=== PATIENT | female | born 1935 | race Caucasian/White ===

== ENCOUNTER → 2017-01-28 | Outpatient (CLI) | payer MEDICARE | END | disposition home or self-care (01) | LOC: CFH 15:04 | PROVIDERS: ATTEND Nurse Practitioner Family | DX: S22.41XA Multiple fractures of ribs, right side, initial encounter for closed fracture (principal); R91.1 Solitary pulmonary nodule; M25.551 Pain in right hip; R09.02 Hypoxemia; R26.89 Other abnormalities of gait and mobility; X58.XXXA Exposure to other specified factors, initial encounter; Y93.89 Activity, other specified; Y92.89 Other specified places as the place of occurrence of the external cause; Y99.8 Other external cause status | CPT/HCPCS: 73523 ==

== ENCOUNTER 2017-07-03 14:18 | Inpatient (IN) | payer MEDICARE ==
[~2017-07-03] VITALS: Ht 157.5 cm; Wt 58.2 kg
[2017-07-03] MEDS ORDERED: SODIUM CHLORIDE 0.9% 1,000 ML IV ONE (14:55)
[2017-07-03] MEDS ORDERED: methylPREDNISolone SOD SUCC 125 MG/2 ML IVP ONE (15:00)
[2017-07-03] MEDS ORDERED: SODIUM CHLORIDE FLUSH 10ML SYR IVF ONE (15:00)
[2017-07-03] MEDS ORDERED: SODIUM CHLORIDE 0.9% 1,000 ML IV SCH (15:27)
[2017-07-03] MEDS ORDERED: methylPREDNISolone SOD SUCC 125 MG/2 ML ONE (15:28)
[2017-07-03] MEDS ORDERED: ALBUTEROL SULFATE 2.5 MG/3 ML ONE ×3 (15:29→21:13)
[2017-07-03] MEDS ORDERED: HYDROcodone/APAP 5/325 TABLET PO PRN (15:30)
[2017-07-03] MEDS ORDERED: ONDANSETRON 2MG/ML, 2ML IVPush PRN (15:30)
[2017-07-03] MEDS ORDERED: DOCUSATE 100 MG CAPSULE PO PRN (15:30)
[2017-07-03] MEDS ORDERED: ACETAMINOPHEN 325 MG TABLET PO PRN (15:30)
[2017-07-03] MEDS ORDERED: GUAIFENESIN/DM 200-20MG, 10ML UDC PO PRN (15:30)
[2017-07-03] MEDS ORDERED: POLYETHYLENE GLYCOL 17 GM PACKET PO PRN (15:30)
[2017-07-03] MEDS: methylPREDNISolone SOD SUCC 125 MG/2 ML IVPush SCH ×2 (15:30→23:21)
[2017-07-03 15:35] LABS: HEMOGLOBIN 13.9 g/dL (11.7-16.4); WHITE BLOOD COUNT 15.6 x10^3/uL (3.4-10)
[2017-07-03 15:42] LABS: ASPARTATE AMINO TRANSFERASE 13 U/L (15-37); BLOOD UREA NITROGEN 34 mg/dL (7-18)
[2017-07-03 15:49] LABS: IS PT STATUS REG ER OR PRE ER? YES
[2017-07-03] MEDS ORDERED: ATOR10TA9 PO (15:56)
[2017-07-03] MEDS ORDERED: LORA0.5T PO (15:56)
[2017-07-03] MEDS ORDERED: CALC1CAP8 PO (15:56)
[2017-07-03] MEDS ORDERED: NITR50CA11 PO (15:56)
[2017-07-03] MEDS ORDERED: LOPE2CAP PO (15:56)
[2017-07-03] MEDS ORDERED: GUAI-103 PO (15:56)
[2017-07-03] MEDS ORDERED: BUDE10.2 INH (15:56)
[2017-07-03] MEDS ORDERED: CYAN1TAB29 PO (15:56)
[2017-07-03] MEDS ORDERED: SITA100T PO (15:56)
[2017-07-03] MEDS ORDERED: IRBE150T49 PO (15:56)
[2017-07-03] MEDS ORDERED: DILT240C77 PO (15:56)
[2017-07-03] MEDS ORDERED: ASPI-515 PO (15:56)
[2017-07-03] MEDS ORDERED: PRED10TA PO (15:56)
[2017-07-03] MEDS ORDERED: POTA20TA89 PO (15:56)
[2017-07-03] MEDS ORDERED: LEVO50TA PO (15:56)
[2017-07-03] MEDS ORDERED: MAGN500T PO (15:56)
[2017-07-03] MEDS ORDERED: INSU100V13 SQ (15:56)
[2017-07-03] MEDS ORDERED: FURO-92 PO (15:56)
[2017-07-03] MEDS ORDERED: IPRA4AER INH (15:56)
[2017-07-03] MEDS ORDERED: AZIT500T PO (15:56)
[2017-07-03] MEDS ORDERED: SERT100T5 PO (15:56)
[2017-07-03] MEDS ORDERED: TIOT18CA INH (15:56)
[2017-07-03] MEDS ORDERED: GLIM2TAB2 PO (15:56)
[2017-07-03] MEDS ORDERED: MONT10TA9 PO (15:56)
[2017-07-03] MEDS ORDERED: TRAV5DRO EACHEYE (15:56)
[2017-07-03] MEDS ORDERED: BRIM5DRO3 EACHEYE (15:56)
[2017-07-03] MEDS ORDERED: FUROSEMIDE 20 MG/2 ML IV ONE (16:00)
[2017-07-03] MEDS: INSULIN ASPART 100 UNITS/ML, PEN SQ-INSULIN SCH ×2 (16:00→20:16)
[2017-07-03] MEDS ORDERED: CEFTRIAXONE PMX 1GM/50ML 50 ML ONE (16:11)
[2017-07-03] MEDS: CEFTRIAXONE PMX 1GM/50ML 50 ML IV SCH ×2 (16:15→17:48)
[2017-07-03 17:38] VITALS: BP 131/58
[2017-07-03] MEDS: ENOXAPARIN 30 MG/0.3 ML SQ SCH (18:10)
[2017-07-03 19:13] VITALS: BP 158/71
[2017-07-03] MEDS: DOXYCYCLINE 100 MG in DEXTROSE 5% 250 ML IV SCH (20:17)
[2017-07-04 02:17] VITALS: BP 138/58
[2017-07-04] MEDS: INSULIN ASPART 100 UNITS/ML, PEN SQ-INSULIN SCH ×4 (07:31→21:03)
[2017-07-04] MEDS: methylPREDNISolone SOD SUCC 125 MG/2 ML IVPush SCH (07:32)
[2017-07-04] MEDS: SENNA/DOCUSATE TABLET PO SCH (07:32)
[2017-07-04] MEDS: DOXYCYCLINE 100 MG in DEXTROSE 5% 250 ML IV SCH (07:32)
[2017-07-04 07:41] VITALS: BP 169/86
[2017-07-04] MEDS ORDERED: ALBUTEROL/IPRATROPIUM 2.5MG/0.5MG, 3 ML NPPB SCH ×2 (09:00→10:00)
[2017-07-04] MEDS: ALBUTEROL/IPRATROPIUM 2.5MG/0.5MG, 3 ML NPPB SCH ×3 (09:00→18:45)
[2017-07-04 10:38] VITALS: BP 213/93
[2017-07-04 10:39] VITALS: BP 194/80
[2017-07-04] MEDS: LORazepam 1MG TABLET PO PRN (10:51)
[2017-07-04] MEDS ORDERED: FUROSEMIDE 40 MG/4 ML IV ONE (11:00)
[2017-07-04] MEDS ORDERED: OMNIPAQUE 350 MG/ML, 75ML BOTTLE ONE (12:19)
[2017-07-04 13:23] VITALS: BP 170/85
[2017-07-04] MEDS: INSULIN DETEMIR 100 UNITS/ML, PEN SQ-INSULIN SCH (16:24)
[2017-07-04] MEDS: ENOXAPARIN 30 MG/0.3 ML SQ SCH (16:25)
[2017-07-04] MEDS: IRBESARTAN 150 MG TABLET PO SCH (16:26)
[2017-07-04 20:16] VITALS: BP 148/67
[2017-07-05 01:59] VITALS: BP 152/88
[2017-07-05 04:45] LABS: BLOOD UREA NITROGEN 38 mg/dL (7-18)
[2017-07-05] MEDS: INSULIN DETEMIR 100 UNITS/ML, PEN SQ-INSULIN SCH ×2 (05:16→16:10)
[2017-07-05 06:38] VITALS: BP 157/74
[2017-07-05] MEDS: INSULIN ASPART 100 UNITS/ML, PEN SQ-INSULIN SCH ×4 (08:07→20:53)
[2017-07-05] MEDS: LORazepam 1MG TABLET PO PRN ×2 (08:14→15:55)
[2017-07-05] MEDS: IRBESARTAN 150 MG TABLET PO SCH (08:14)
[2017-07-05] MEDS: SENNA/DOCUSATE TABLET PO SCH (08:14)
[2017-07-05] MEDS: ALBUTEROL/IPRATROPIUM 2.5MG/0.5MG, 3 ML NPPB SCH ×2 (09:00→20:10)
[2017-07-05 13:22] VITALS: BP 158/66
[2017-07-05] MEDS: ENOXAPARIN 30 MG/0.3 ML SQ SCH (16:00)
[2017-07-05] MEDS ORDERED: ALBUTEROL SULFATE 2.5 MG/3 ML NPPB PRN (16:30)
[2017-07-05 20:34] VITALS: BP 155/69
[2017-07-06 02:10] VITALS: BP 154/77
[2017-07-06] MEDS: INSULIN DETEMIR 100 UNITS/ML, PEN SQ-INSULIN SCH ×2 (05:11→16:39)
[2017-07-06 07:41] VITALS: BP 169/80
[2017-07-06] MEDS: IRBESARTAN 150 MG TABLET PO SCH (08:11)
[2017-07-06] MEDS: LORazepam 1MG TABLET PO PRN (08:12)
[2017-07-06] MEDS: SENNA/DOCUSATE TABLET PO SCH (08:12)
[2017-07-06] MEDS: INSULIN ASPART 100 UNITS/ML, PEN SQ-INSULIN SCH ×4 (08:14→20:14)
[2017-07-06] MEDS: ALBUTEROL/IPRATROPIUM 2.5MG/0.5MG, 3 ML NPPB SCH ×2 (09:00→19:30)
[2017-07-06 14:58] VITALS: BP 186/85
[2017-07-06 15:39] VITALS: BP 152/70
[2017-07-06] MEDS: ENOXAPARIN 30 MG/0.3 ML SQ SCH (16:40)
[2017-07-06 20:06] VITALS: BP 150/69
[2017-07-07 01:46] VITALS: BP 143/77
[2017-07-07 05:33] LABS: ASPARTATE AMINO TRANSFERASE 13 U/L (15-37); BLOOD UREA NITROGEN 27 mg/dL (7-18)
[2017-07-07] MEDS: INSULIN ASPART 100 UNITS/ML, PEN SQ-INSULIN SCH ×4 (07:00→22:02)
[2017-07-07 08:07] VITALS: BP 233/97
[2017-07-07 08:09] VITALS: BP 220/90
[2017-07-07] MEDS: INSULIN DETEMIR 100 UNITS/ML, PEN SQ-INSULIN SCH ×2 (08:25→22:53)
[2017-07-07] MEDS: SENNA/DOCUSATE TABLET PO SCH (08:25)
[2017-07-07] MEDS: LORazepam 1MG TABLET PO PRN (08:27)
[2017-07-07] MEDS: ALBUTEROL/IPRATROPIUM 2.5MG/0.5MG, 3 ML NPPB SCH ×2 (08:30→21:00)
[2017-07-07] MEDS ORDERED: LABETALOL 5MG/ML, 20ML IVPush PRN (08:30)
[2017-07-07] MEDS: IRBESARTAN 300 MG TABLET PO SCH (09:33)
[2017-07-07] MEDS: POTASSIUM CHLORIDE 20 MEQ TAB.ER.PRT PO SCH (09:33)
[2017-07-07] MEDS ORDERED: INSULIN DETEMIR 100 UNITS/ML, PEN SQ-INSULIN SCH (11:30)
[2017-07-07 14:36] VITALS: BP 155/72
[2017-07-07] MEDS: ENOXAPARIN 40 MG/0.4 ML SQ SCH (16:48)
[2017-07-07 19:12] VITALS: BP 159/76
[2017-07-07] MEDS ORDERED: INSULIN ASPART 100 UNITS/ML, PEN SQ-INSULIN ONE (23:00)
[2017-07-08 01:33] VITALS: BP 143/69
[2017-07-08 04:28] LABS: BLOOD UREA NITROGEN 24 mg/dL (7-18)
[2017-07-08 04:31] LABS: ASPARTATE AMINO TRANSFERASE 12 U/L (15-37)
[2017-07-08 06:50] VITALS: BP 167/66
[2017-07-08] MEDS: ALBUTEROL/IPRATROPIUM 2.5MG/0.5MG, 3 ML NPPB SCH ×2 (07:03→10:28)
[2017-07-08 07:05] VITALS: BP 167/66
[2017-07-08] MEDS: SENNA/DOCUSATE TABLET PO SCH (09:00)
[2017-07-08] MEDS: INSULIN ASPART 100 UNITS/ML, PEN SQ-INSULIN SCH ×3 (09:16→16:55)
[2017-07-08] MEDS: IRBESARTAN 300 MG TABLET PO SCH (09:18)
[2017-07-08] MEDS: POTASSIUM CHLORIDE 20 MEQ TAB.ER.PRT PO SCH (09:18)
[2017-07-08] MEDS: LORazepam 1MG TABLET PO PRN ×2 (09:23→16:54)
[2017-07-08] MEDS ORDERED: POLY17PO5 PO (11:06)
[2017-07-08] MEDS ORDERED: IRBE300T40 PO (11:06)
[2017-07-08] MEDS ORDERED: INSU100I28 SQ-INSULIN (11:06)
[2017-07-08] MEDS ORDERED: ALBU2.5V NPPB (11:06)
[2017-07-08] MEDS: INSULIN DETEMIR 100 UNITS/ML, PEN SQ-INSULIN SCH (11:59)
[2017-07-08 13:15] VITALS: BP 147/72
[2017-07-08] MEDS: ENOXAPARIN 40 MG/0.4 ML SQ SCH (16:00)
== END 2017-07-08 17:22 | DRG 291 ==
LOC: ED 15:14 → EDIP 15:15 → SUATTDRO 15:17 → ED 15:55 → 3NW 16:58
PROVIDERS: ADMIT Family Medicine; ATTEND Internal Medicine
DX: I11.0 Hypertensive heart disease with heart failure (principal); J96.21 Acute and chronic respiratory failure with hypoxia; E43 Unspecified severe protein-calorie malnutrition; J18.9 Pneumonia, unspecified organism; J44.0 Chronic obstructive pulmonary disease with (acute) lower respiratory infection; E11.9 Type 2 diabetes mellitus without complications; J44.1 Chronic obstructive pulmonary disease with (acute) exacerbation; I50.32 Chronic diastolic (congestive) heart failure; E87.6 Hypokalemia; F32.9 Major depressive disorder, single episode, unspecified; Z51.5 Encounter for palliative care; R91.1 Solitary pulmonary nodule; Z66 Do not resuscitate; Z79.4 Long term (current) use of insulin; Z88.0 Allergy status to penicillin; Z68.23 Body mass index [BMI] 23.0-23.9, adult; Z88.2 Allergy status to sulfonamides; Z87.891 Personal history of nicotine dependence; Z88.5 Allergy status to narcotic agent
CPT/HCPCS: 36415; 71010; 71260; 80048; 80053; 82947; 82962; 83036; 83605; 83880; 84484; 85025; 87040; 87070; 87077; 87186; 87205; 93005; 94640; 96374; J0696; J1650; J1815; J1940; J7060; J7620; Q9967; J2930; J7030; J7512

== ENCOUNTER 2019-09-28 15:58 | Inpatient (IN) | payer MEDICARE, OTHER ==
[~2019-09-28] VITALS: Ht 152.4 cm; Wt 55.1 kg
[~2019-09-28 15:58] MED LIST: ALBU2.5V NPPB; ASPI-515 PO; ATOR10TA9 PO; AZIT500T PO; BRIM5DRO3 EACHEYE; BUDE10.2 INH; CALC1CAP8 PO; CYAN1TAB29 PO; DILT240C55 PO; DILT240C77 PO; FURO-92 PO; GLIM2TAB7 PO; GUAI-103 PO; INSU100I28 SQ-INSULIN; INSU100V13 SQ; INSU3INS2 INJ; IPRA4AER INH; IRBE150T49 PO; IRBE300T40 PO; LEVO50TA PO; LOPE2CAP PO; LORA0.5T PO; MAGN500T PO; MONT10TA11 PO; NITR50CA11 PO; POLY17PO5 PO; POTA20TA89 PO; PRED10TA PO; SERT100T32 PO; SITA100T PO; TIOT18CA INH; TRAV5DRO EACHEYE
[2019-09-28 17:08] VITALS: BP 177/76
[2019-09-28] MEDS ORDERED: POLYETHYLENE GLYCOL 17 GM PACKET PO PRN (17:30)
[2019-09-28] MEDS: PLEASE ENTER HEIGHT AND WEIGHT MC SCH (17:30)
[2019-09-28] MEDS ORDERED: ACETAMINOPHEN 325 MG TABLET PO PRN (17:30)
[2019-09-28 19:41] VITALS: BP 124/70
[2019-09-28] MEDS: ALBUTEROL/IPRATROPIUM 2.5MG/0.5MG, 3 ML NPPB SCH (20:44)
[2019-09-28] MEDS: BUDESONIDE 0.5 MG/2 ML INHA INH SCH (20:44)
[2019-09-29] MEDS: PLEASE ENTER HEIGHT AND WEIGHT MC SCH (01:30)
[2019-09-29] MEDS: ALBUTEROL/IPRATROPIUM 2.5MG/0.5MG, 3 ML NPPB SCH (07:18)
[2019-09-29] MEDS: BUDESONIDE 0.5 MG/2 ML INHA INH SCH (07:18)
[2019-09-29 07:47] VITALS: BP 155/65
[2019-09-29] MEDS: DILTIAZEM 240 MG CAP.ER.24H PO SCH (09:57)
[2019-09-29] MEDS: ASPIRIN 81 MG TABLET EC PO SCH (09:57)
[2019-09-29] MEDS: FUROSEMIDE 40 MG TABLET PO SCH (09:57)
[2019-09-29] MEDS: IRBESARTAN 150 MG TABLET PO SCH (09:57)
[2019-09-29 10:20] LABS: CHOL/HDL RATIO 2.6; FREE T4 (FREE THYROXINE) 1.16 ng/dL (0.76-1.46); LDL/HDL RATIO 1.1 (0.5-3.0)
[2019-09-29] MEDS: ALBUTEROL SULFATE 2.5 MG/3 ML NPPB PRN (13:56)
[2019-09-29] MEDS: ESCITALOPRAM 10MG TABLET PO SCH (18:08)
[2019-09-29 19:33] VITALS: BP 125/71
[2019-09-29] MEDS: ATORVASTATIN 10 MG TABLET PO SCH (20:52)
[2019-09-30] MEDS: LEVOTHYROXINE 50 MCG TABLET PO SCH (06:12)
[2019-09-30 07:00] VITALS: BP 133/61
[2019-09-30] MEDS: BUDESONIDE 0.5 MG/2 ML INHA INH SCH ×2 (07:00→19:48)
[2019-09-30] MEDS: ALBUTEROL/IPRATROPIUM 2.5MG/0.5MG, 3 ML NPPB SCH ×2 (07:00→19:48)
[2019-09-30] MEDS: FUROSEMIDE 40 MG TABLET PO SCH (08:44)
[2019-09-30] MEDS: ASPIRIN 81 MG TABLET EC PO SCH (08:44)
[2019-09-30] MEDS: IRBESARTAN 150 MG TABLET PO SCH (08:44)
[2019-09-30] MEDS: ESCITALOPRAM 10MG TABLET PO SCH (08:45)
[2019-09-30] MEDS: DILTIAZEM 240 MG CAP.ER.24H PO SCH (08:45)
[2019-09-30 19:38] VITALS: BP 148/70
[2019-09-30] MEDS: ATORVASTATIN 10 MG TABLET PO SCH (20:35)
[2019-10-01] MEDS: LEVOTHYROXINE 50 MCG TABLET PO SCH (05:53)
[2019-10-01] MEDS: ALBUTEROL/IPRATROPIUM 2.5MG/0.5MG, 3 ML NPPB SCH ×2 (05:59→18:20)
[2019-10-01] MEDS: BUDESONIDE 0.5 MG/2 ML INHA INH SCH ×2 (05:59→18:20)
[2019-10-01 07:59] VITALS: BP 147/65
[2019-10-01] MEDS: ASPIRIN 81 MG TABLET EC PO SCH (08:43)
[2019-10-01] MEDS: FUROSEMIDE 40 MG TABLET PO SCH (08:44)
[2019-10-01] MEDS: IRBESARTAN 150 MG TABLET PO SCH (08:44)
[2019-10-01] MEDS: DILTIAZEM 240 MG CAP.ER.24H PO SCH (08:44)
[2019-10-01] MEDS: ESCITALOPRAM 10MG TABLET PO SCH (08:44)
[2019-10-01 19:15] VITALS: BP 133/70
[2019-10-01] MEDS: ATORVASTATIN 10 MG TABLET PO SCH (21:24)
[2019-10-02] MEDS: LEVOTHYROXINE 50 MCG TABLET PO SCH (05:27)
[2019-10-02 07:38] VITALS: BP 135/77
[2019-10-02] MEDS: BUDESONIDE 0.5 MG/2 ML INHA INH SCH ×2 (08:06→18:40)
[2019-10-02] MEDS: ALBUTEROL/IPRATROPIUM 2.5MG/0.5MG, 3 ML NPPB SCH ×2 (08:06→18:40)
[2019-10-02] MEDS: IRBESARTAN 150 MG TABLET PO SCH (08:26)
[2019-10-02] MEDS: ESCITALOPRAM 10MG TABLET PO SCH (08:26)
[2019-10-02] MEDS: DILTIAZEM 240 MG CAP.ER.24H PO SCH (08:26)
[2019-10-02] MEDS: ASPIRIN 81 MG TABLET EC PO SCH (08:27)
[2019-10-02] MEDS: FUROSEMIDE 40 MG TABLET PO SCH (08:27)
[2019-10-02] MEDS: FOLIC ACID 1 MG TABLET PO SCH (12:02)
[2019-10-02] MEDS: ALBUTEROL SULFATE 2.5 MG/3 ML NPPB PRN (14:46)
[2019-10-02] MEDS ORDERED: ALBUTEROL SULFATE 2.5 MG/3 ML NPPB PRN (15:00)
[2019-10-02 19:20] VITALS: BP 137/63
[2019-10-02] MEDS: ATORVASTATIN 10 MG TABLET PO SCH (20:28)
[2019-10-03] MEDS: LEVOTHYROXINE 50 MCG TABLET PO SCH (06:08)
[2019-10-03 07:23] VITALS: BP 164/52
[2019-10-03] MEDS: IRBESARTAN 150 MG TABLET PO SCH (08:41)
[2019-10-03] MEDS: FOLIC ACID 1 MG TABLET PO SCH (08:42)
[2019-10-03] MEDS: ASPIRIN 81 MG TABLET EC PO SCH (08:42)
[2019-10-03] MEDS: DILTIAZEM 240 MG CAP.ER.24H PO SCH (08:42)
[2019-10-03] MEDS: ESCITALOPRAM 10MG TABLET PO SCH (08:42)
[2019-10-03] MEDS: FUROSEMIDE 40 MG TABLET PO SCH (08:42)
[2019-10-03] MEDS: ALBUTEROL/IPRATROPIUM 2.5MG/0.5MG, 3 ML NPPB SCH ×2 (11:00→19:00)
[2019-10-03] MEDS: BUDESONIDE 0.5 MG/2 ML INHA INH SCH ×2 (11:00→19:00)
[2019-10-03 11:50] VITALS: BP 135/66
[2019-10-03] MEDS: ATORVASTATIN 10 MG TABLET PO SCH (20:01)
[2019-10-03] MEDS: GUAIFENESIN ER 600 MG TABLET PO SCH (20:07)
[2019-10-03 20:24] VITALS: BP 138/61
[2019-10-04] MEDS: LEVOTHYROXINE 50 MCG TABLET PO SCH (05:51)
[2019-10-04 07:00] VITALS: BP 151/54
[2019-10-04] MEDS: ASPIRIN 81 MG TABLET EC PO SCH (08:40)
[2019-10-04] MEDS: DILTIAZEM 240 MG CAP.ER.24H PO SCH (08:41)
[2019-10-04] MEDS: GUAIFENESIN ER 600 MG TABLET PO SCH ×2 (08:41→20:08)
[2019-10-04] MEDS: FUROSEMIDE 40 MG TABLET PO SCH (08:41)
[2019-10-04] MEDS: ESCITALOPRAM 10MG TABLET PO SCH (08:41)
[2019-10-04] MEDS: IRBESARTAN 150 MG TABLET PO SCH (08:42)
[2019-10-04] MEDS: FOLIC ACID 1 MG TABLET PO SCH (08:42)
[2019-10-04] MEDS: BUDESONIDE 0.5 MG/2 ML INHA INH SCH ×2 (09:10→18:50)
[2019-10-04] MEDS: ALBUTEROL/IPRATROPIUM 2.5MG/0.5MG, 3 ML NPPB SCH ×2 (09:10→18:50)
[2019-10-04 19:00] VITALS: BP 147/68
[2019-10-04] MEDS: ATORVASTATIN 10 MG TABLET PO SCH (20:08)
[2019-10-05] MEDS: LEVOTHYROXINE 50 MCG TABLET PO SCH (05:21)
[2019-10-05 07:00] VITALS: BP 106/65
[2019-10-05 07:36] VITALS: BP 186/77
[2019-10-05] MEDS: GUAIFENESIN ER 600 MG TABLET PO SCH ×2 (08:58→20:35)
[2019-10-05] MEDS: SERTRALINE 50MG TABLET PO SCH (08:58)
[2019-10-05] MEDS: ASPIRIN 81 MG TABLET EC PO SCH (08:58)
[2019-10-05] MEDS: FOLIC ACID 1 MG TABLET PO SCH (08:58)
[2019-10-05] MEDS: DILTIAZEM 240 MG CAP.ER.24H PO SCH (08:58)
[2019-10-05] MEDS: FUROSEMIDE 40 MG TABLET PO SCH (08:58)
[2019-10-05] MEDS: ALBUTEROL/IPRATROPIUM 2.5MG/0.5MG, 3 ML NPPB SCH ×2 (10:20→19:20)
[2019-10-05] MEDS: BUDESONIDE 0.5 MG/2 ML INHA INH SCH ×2 (10:20→19:20)
[2019-10-05] MEDS: IRBESARTAN 150 MG TABLET PO SCH (10:51)
[2019-10-05 11:55] VITALS: BP_SYST 138; BP_SYST 163; BP_DIAS 113; BP_DIAS 70
[2019-10-05] MEDS: ALBUTEROL SULFATE 2.5 MG/3 ML NPPB PRN (16:20)
[2019-10-05 19:43] VITALS: BP 159/72
[2019-10-05] MEDS: ATORVASTATIN 10 MG TABLET PO SCH (20:35)
[2019-10-06] MEDS: LEVOTHYROXINE 50 MCG TABLET PO SCH (06:11)
[2019-10-06] MEDS: ALBUTEROL/IPRATROPIUM 2.5MG/0.5MG, 3 ML NPPB SCH ×2 (06:30→20:50)
[2019-10-06] MEDS: BUDESONIDE 0.5 MG/2 ML INHA INH SCH ×2 (06:30→20:50)
[2019-10-06 07:00] VITALS: BP 152/70
[2019-10-06] MEDS: IRBESARTAN 150 MG TABLET PO SCH (08:59)
[2019-10-06] MEDS: GUAIFENESIN ER 600 MG TABLET PO SCH ×2 (08:59→20:05)
[2019-10-06] MEDS: ASPIRIN 81 MG TABLET EC PO SCH (08:59)
[2019-10-06] MEDS: FOLIC ACID 1 MG TABLET PO SCH (08:59)
[2019-10-06] MEDS: SERTRALINE 50MG TABLET PO SCH (08:59)
[2019-10-06] MEDS: DILTIAZEM 240 MG CAP.ER.24H PO SCH (08:59)
[2019-10-06] MEDS: FUROSEMIDE 40 MG TABLET PO SCH (08:59)
[2019-10-06] MEDS: ATORVASTATIN 10 MG TABLET PO SCH (20:02)
[2019-10-06 20:53] VITALS: BP 169/69
[2019-10-07] MEDS: LEVOTHYROXINE 50 MCG TABLET PO SCH (05:51)
[2019-10-07 05:59] VITALS: BP 145/72
[2019-10-07 08:21] VITALS: BP 135/75
[2019-10-07] MEDS: ASPIRIN 81 MG TABLET EC PO SCH (08:36)
[2019-10-07] MEDS: IRBESARTAN 150 MG TABLET PO SCH (08:36)
[2019-10-07] MEDS: FOLIC ACID 1 MG TABLET PO SCH (08:37)
[2019-10-07] MEDS: DILTIAZEM 240 MG CAP.ER.24H PO SCH (08:37)
[2019-10-07] MEDS: FUROSEMIDE 40 MG TABLET PO SCH (08:37)
[2019-10-07] MEDS: SERTRALINE 50MG TABLET PO SCH (08:37)
[2019-10-07] MEDS: GUAIFENESIN ER 600 MG TABLET PO SCH ×2 (08:37→20:46)
[2019-10-07] MEDS: BUDESONIDE 0.5 MG/2 ML INHA INH SCH ×2 (11:05→20:44)
[2019-10-07] MEDS: ALBUTEROL/IPRATROPIUM 2.5MG/0.5MG, 3 ML NPPB SCH ×2 (11:05→20:44)
[2019-10-07 14:41] LABS: ANION GAP 10 mmol/L (5-15); CALCIUM 9.2 mg/dL (8.5-10.1); CHLORIDE 95 mmol/L (98-107); CREATININE 1.37 mg/dL (0.55-1.02)
[2019-10-07] MEDS ORDERED: SODIUM CHLORIDE 0.9% 500 ML IV ONE (15:30)
[2019-10-07] MEDS: INSULIN LISPRO 100 UNITS/ML, PEN SQ-INSULIN SCH ×2 (16:51→20:34)
[2019-10-07 18:46] LABS: ALANINE AMINOTRANSFERASE 26 U/L (12-78); ALBUMIN 3.3 g/dL (3.4-5.0); ANION GAP 8 mmol/L (5-15); CALCIUM 9.5 mg/dL (8.5-10.1); CHLORIDE 100 mmol/L (98-107); CREATININE 1.37 mg/dL (0.55-1.02)
[2019-10-07 18:48] LABS: ALKALINE PHOSPHATASE 88 U/L (45-117); BILIRUBIN,TOTAL 0.2 mg/dL (0.2-1.0); TOTAL PROTEIN 7.2 g/dL (6.4-8.2)
[2019-10-07 19:35] VITALS: BP 130/55
[2019-10-07] MEDS: ATORVASTATIN 10 MG TABLET PO SCH (20:46)
[2019-10-08] MEDS: LEVOTHYROXINE 50 MCG TABLET PO SCH (05:55)
[2019-10-08 07:38] VITALS: BP 135/69
[2019-10-08] MEDS: INSULIN LISPRO 100 UNITS/ML, PEN SQ-INSULIN SCH ×4 (08:28→20:05)
[2019-10-08] MEDS: ASPIRIN 81 MG TABLET EC PO SCH (08:29)
[2019-10-08] MEDS: SERTRALINE 50MG TABLET PO SCH (08:29)
[2019-10-08] MEDS: DILTIAZEM 240 MG CAP.ER.24H PO SCH (08:29)
[2019-10-08] MEDS: FUROSEMIDE 40 MG TABLET PO SCH ×3 (08:29→09:33)
[2019-10-08] MEDS: FOLIC ACID 1 MG TABLET PO SCH (08:29)
[2019-10-08] MEDS: IRBESARTAN 150 MG TABLET PO SCH (08:29)
[2019-10-08] MEDS: GUAIFENESIN ER 600 MG TABLET PO SCH ×2 (08:29→20:06)
[2019-10-08 09:14] LABS: ANION GAP 10 mmol/L (5-15); CALCIUM 9.3 mg/dL (8.5-10.1); CHLORIDE 102 mmol/L (98-107); CREATININE 1.06 mg/dL (0.55-1.02)
[2019-10-08] MEDS: BUDESONIDE 0.5 MG/2 ML INHA INH SCH ×3 (09:30→21:50)
[2019-10-08] MEDS: POTASSIUM CHLORIDE 10 MEQ TABLET.ER PO SCH (09:35)
[2019-10-08] MEDS: ALBUTEROL/IPRATROPIUM 2.5MG/0.5MG, 3 ML NPPB SCH ×3 (10:15→21:55)
[2019-10-08 19:21] VITALS: BP 134/72
[2019-10-08] MEDS: ATORVASTATIN 10 MG TABLET PO SCH (20:06)
[2019-10-08] MEDS ORDERED: INSULIN LISPRO 100 UNIT/ML, 3ML VIAL SQ-INSULIN ONE (21:30)
[2019-10-09] MEDS: LEVOTHYROXINE 50 MCG TABLET PO SCH (05:45)
[2019-10-09] MEDS ORDERED: OMEPRAZOLE 20 MG CAPSULE.DR PO SCH (06:00)
[2019-10-09] MEDS ORDERED: INSULIN GLARGINE 100 UNITS/ML, PEN SQ-INSULIN SCH (07:30)
[2019-10-09 07:44] VITALS: BP 130/66
[2019-10-09] MEDS: OMEPRAZOLE 20 MG CAPSULE.DR PO SCH (08:11)
[2019-10-09] MEDS ORDERED: DEXTROSE 50%, 50ML SYRINGE IVPush PRN (08:30)
[2019-10-09] MEDS ORDERED: DEXTROSE 4 GM TAB.CHEW PO PRN (08:30)
[2019-10-09] MEDS ORDERED: GLUCAGON 1 MG IM PRN (08:30)
[2019-10-09] MEDS: POTASSIUM CHLORIDE 10 MEQ TABLET.ER PO SCH (08:32)
[2019-10-09] MEDS: FUROSEMIDE 40 MG TABLET PO SCH (08:32)
[2019-10-09] MEDS: FOLIC ACID 1 MG TABLET PO SCH (08:32)
[2019-10-09] MEDS: SERTRALINE 50MG TABLET PO SCH (08:33)
[2019-10-09] MEDS: ASPIRIN 81 MG TABLET EC PO SCH (08:33)
[2019-10-09] MEDS: IRBESARTAN 150 MG TABLET PO SCH (08:33)
[2019-10-09] MEDS: GUAIFENESIN ER 600 MG TABLET PO SCH ×2 (08:34→20:21)
[2019-10-09] MEDS: DILTIAZEM 240 MG CAP.ER.24H PO SCH (08:34)
[2019-10-09] MEDS: INSULIN LISPRO 100 UNITS/ML, PEN SQ-INSULIN SCH ×4 (08:36→20:20)
[2019-10-09] MEDS: INSULIN GLARGINE 100 UNITS/ML, PEN SQ-INSULIN SCH ×2 (09:00→20:21)
[2019-10-09] MEDS: SODIUM CHLORIDE FLUSH 10ML SYR IVF SCH ×2 (09:00→21:00)
[2019-10-09] MEDS ORDERED: INSULIN LISPRO 100 UNIT/ML, 3ML VIAL SQ-INSULIN ONE ×3 (12:00→17:00)
[2019-10-09 19:25] VITALS: BP 139/56
[2019-10-09] MEDS: ATORVASTATIN 10 MG TABLET PO SCH (20:21)
[2019-10-09] MEDS: ALBUTEROL/IPRATROPIUM 2.5MG/0.5MG, 3 ML NPPB SCH (20:56)
[2019-10-09] MEDS: BUDESONIDE 0.5 MG/2 ML INHA INH SCH (20:56)
[2019-10-10] MEDS: LEVOTHYROXINE 50 MCG TABLET PO SCH (06:00)
[2019-10-10] MEDS: OMEPRAZOLE 20 MG CAPSULE.DR PO SCH (06:00)
[2019-10-10 06:40] LABS: ANION GAP 5 mmol/L (5-15); CALCIUM 9.2 mg/dL (8.5-10.1); CHLORIDE 106 mmol/L (98-107); CREATININE 0.94 mg/dL (0.55-1.02)
[2019-10-10 07:00] VITALS: BP 129/75
[2019-10-10] MEDS: INSULIN LISPRO 100 UNITS/ML, PEN SQ-INSULIN SCH ×4 (08:59→20:33)
[2019-10-10] MEDS: ALBUTEROL/IPRATROPIUM 2.5MG/0.5MG, 3 ML NPPB SCH ×2 (09:00→20:55)
[2019-10-10] MEDS ORDERED: INSULIN GLARGINE 100 UNITS/ML, PEN SQ-INSULIN SCH ×2 (09:00)
[2019-10-10] MEDS: BUDESONIDE 0.5 MG/2 ML INHA INH SCH ×2 (09:00→20:55)
[2019-10-10] MEDS: GUAIFENESIN ER 600 MG TABLET PO SCH ×2 (09:00→20:31)
[2019-10-10] MEDS: SODIUM CHLORIDE FLUSH 10ML SYR IVF SCH (09:00)
[2019-10-10] MEDS: ASPIRIN 81 MG TABLET EC PO SCH (09:26)
[2019-10-10] MEDS: FUROSEMIDE 40 MG TABLET PO SCH (09:26)
[2019-10-10] MEDS: SERTRALINE 50MG TABLET PO SCH (09:27)
[2019-10-10] MEDS: DILTIAZEM 240 MG CAP.ER.24H PO SCH (09:27)
[2019-10-10] MEDS: POTASSIUM CHLORIDE 10 MEQ TABLET.ER PO SCH (09:27)
[2019-10-10] MEDS: IRBESARTAN 150 MG TABLET PO SCH (09:28)
[2019-10-10] MEDS: FOLIC ACID 1 MG TABLET PO SCH (09:28)
[2019-10-10 16:37] VITALS: BP 173/69
[2019-10-10] MEDS ORDERED: INSULIN LISPRO 100 UNIT/ML, 3ML VIAL SQ-INSULIN ONE (17:00)
[2019-10-10 19:22] VITALS: BP 130/69
[2019-10-10] MEDS: ATORVASTATIN 10 MG TABLET PO SCH (20:31)
[2019-10-10] MEDS: INSULIN GLARGINE 100 UNITS/ML, PEN SQ-INSULIN SCH (20:33)
[2019-10-11] MEDS: LEVOTHYROXINE 50 MCG TABLET PO SCH (05:59)
[2019-10-11] MEDS: OMEPRAZOLE 20 MG CAPSULE.DR PO SCH (05:59)
[2019-10-11 07:00] VITALS: BP 170/73
[2019-10-11] MEDS: INSULIN LISPRO 100 UNITS/ML, PEN SQ-INSULIN SCH ×4 (07:57→20:52)
[2019-10-11] MEDS: DILTIAZEM 240 MG CAP.ER.24H PO SCH (08:35)
[2019-10-11] MEDS: FOLIC ACID 1 MG TABLET PO SCH (08:35)
[2019-10-11] MEDS: FUROSEMIDE 40 MG TABLET PO SCH (08:35)
[2019-10-11] MEDS: ASPIRIN 81 MG TABLET EC PO SCH (08:36)
[2019-10-11] MEDS: IRBESARTAN 150 MG TABLET PO SCH (08:36)
[2019-10-11] MEDS: POTASSIUM CHLORIDE 10 MEQ TABLET.ER PO SCH (08:36)
[2019-10-11] MEDS: GUAIFENESIN ER 600 MG TABLET PO SCH ×2 (08:37→20:52)
[2019-10-11] MEDS: INSULIN GLARGINE 100 UNITS/ML, PEN SQ-INSULIN SCH ×2 (08:39→20:53)
[2019-10-11] MEDS: SERTRALINE 50MG TABLET PO SCH (08:40)
[2019-10-11 09:15] VITALS: BP 131/65
[2019-10-11] MEDS: ALBUTEROL/IPRATROPIUM 2.5MG/0.5MG, 3 ML NPPB SCH ×2 (10:20→20:10)
[2019-10-11] MEDS: BUDESONIDE 0.5 MG/2 ML INHA INH SCH ×2 (10:20→20:10)
[2019-10-11 20:00] VITALS: BP 158/62
[2019-10-11] MEDS: ATORVASTATIN 10 MG TABLET PO SCH (20:52)
[2019-10-12] MEDS: OMEPRAZOLE 20 MG CAPSULE.DR PO SCH (06:13)
[2019-10-12] MEDS: LEVOTHYROXINE 50 MCG TABLET PO SCH (06:13)
[2019-10-12 07:00] VITALS: BP 144/76
[2019-10-12] MEDS: INSULIN LISPRO 100 UNITS/ML, PEN SQ-INSULIN SCH ×4 (07:00→20:37)
[2019-10-12] MEDS: DILTIAZEM 240 MG CAP.ER.24H PO SCH (09:09)
[2019-10-12] MEDS: ASPIRIN 81 MG TABLET EC PO SCH (09:09)
[2019-10-12] MEDS: IRBESARTAN 150 MG TABLET PO SCH (09:09)
[2019-10-12] MEDS: FOLIC ACID 1 MG TABLET PO SCH (09:09)
[2019-10-12] MEDS: POTASSIUM CHLORIDE 10 MEQ TABLET.ER PO SCH (09:10)
[2019-10-12] MEDS: SERTRALINE 50MG TABLET PO SCH (09:10)
[2019-10-12] MEDS: FUROSEMIDE 40 MG TABLET PO SCH (09:11)
[2019-10-12] MEDS: GUAIFENESIN ER 600 MG TABLET PO SCH ×2 (09:15→20:36)
[2019-10-12] MEDS: INSULIN GLARGINE 100 UNITS/ML, PEN SQ-INSULIN SCH ×2 (09:18→20:37)
[2019-10-12] MEDS: BUDESONIDE 0.5 MG/2 ML INHA INH SCH ×2 (10:00→20:54)
[2019-10-12] MEDS: ALBUTEROL/IPRATROPIUM 2.5MG/0.5MG, 3 ML NPPB SCH ×2 (10:00→20:54)
[2019-10-12 19:33] VITALS: BP 126/66
[2019-10-12] MEDS: ATORVASTATIN 10 MG TABLET PO SCH (20:36)
[2019-10-13] MEDS: LEVOTHYROXINE 50 MCG TABLET PO SCH (05:58)
[2019-10-13] MEDS: OMEPRAZOLE 20 MG CAPSULE.DR PO SCH (05:58)
[2019-10-13] MEDS: INSULIN LISPRO 100 UNITS/ML, PEN SQ-INSULIN SCH ×4 (07:00→20:15)
[2019-10-13 07:26] VITALS: BP 132/88
[2019-10-13] MEDS: POTASSIUM CHLORIDE 10 MEQ TABLET.ER PO SCH (08:44)
[2019-10-13] MEDS: SERTRALINE 50MG TABLET PO SCH (08:45)
[2019-10-13] MEDS: IRBESARTAN 150 MG TABLET PO SCH (08:45)
[2019-10-13] MEDS: GUAIFENESIN ER 600 MG TABLET PO SCH ×2 (08:45→20:12)
[2019-10-13] MEDS: FUROSEMIDE 40 MG TABLET PO SCH (08:45)
[2019-10-13] MEDS: FOLIC ACID 1 MG TABLET PO SCH (08:45)
[2019-10-13] MEDS: DILTIAZEM 240 MG CAP.ER.24H PO SCH (08:45)
[2019-10-13] MEDS: ASPIRIN 81 MG TABLET EC PO SCH (08:45)
[2019-10-13] MEDS ORDERED: INSULIN GLARGINE 100 UNITS/ML, PEN SQ-INSULIN SCH ×2 (09:00)
[2019-10-13] MEDS: ALBUTEROL/IPRATROPIUM 2.5MG/0.5MG, 3 ML NPPB SCH ×2 (09:50→20:20)
[2019-10-13] MEDS: BUDESONIDE 0.5 MG/2 ML INHA INH SCH ×2 (09:50→20:20)
[2019-10-13 19:24] VITALS: BP 145/68
[2019-10-13] MEDS: ATORVASTATIN 10 MG TABLET PO SCH (20:12)
[2019-10-13] MEDS: INSULIN GLARGINE 100 UNITS/ML, PEN SQ-INSULIN SCH (20:15)
[2019-10-14 05:12] LABS: ANION GAP 3 mmol/L (5-15); CALCIUM 8.9 mg/dL (8.5-10.1); CHLORIDE 106 mmol/L (98-107)
[2019-10-14 05:13] LABS: CREATININE 0.82 mg/dL (0.55-1.02)
[2019-10-14] MEDS: OMEPRAZOLE 20 MG CAPSULE.DR PO SCH (05:19)
[2019-10-14] MEDS: LEVOTHYROXINE 50 MCG TABLET PO SCH (05:20)
[2019-10-14] MEDS: INSULIN LISPRO 100 UNITS/ML, PEN SQ-INSULIN SCH ×4 (07:00→21:35)
[2019-10-14 07:28] VITALS: BP 131/70
[2019-10-14] MEDS: POTASSIUM CHLORIDE 10 MEQ TABLET.ER PO SCH (08:40)
[2019-10-14] MEDS: FUROSEMIDE 40 MG TABLET PO SCH (08:41)
[2019-10-14] MEDS: SERTRALINE 50MG TABLET PO SCH (08:41)
[2019-10-14] MEDS: IRBESARTAN 150 MG TABLET PO SCH (08:41)
[2019-10-14] MEDS: FOLIC ACID 1 MG TABLET PO SCH (08:41)
[2019-10-14] MEDS: ASPIRIN 81 MG TABLET EC PO SCH (08:41)
[2019-10-14] MEDS: DILTIAZEM 240 MG CAP.ER.24H PO SCH (08:42)
[2019-10-14] MEDS: GUAIFENESIN ER 600 MG TABLET PO SCH ×2 (08:42→21:40)
[2019-10-14] MEDS: BUDESONIDE 0.5 MG/2 ML INHA INH SCH ×2 (08:50→20:58)
[2019-10-14] MEDS: ALBUTEROL/IPRATROPIUM 2.5MG/0.5MG, 3 ML NPPB SCH ×2 (08:50→20:58)
[2019-10-14] MEDS: INSULIN GLARGINE 100 UNITS/ML, PEN SQ-INSULIN SCH ×2 (12:08→21:35)
[2019-10-14 20:00] VITALS: BP 149/70
[2019-10-14] MEDS: ATORVASTATIN 10 MG TABLET PO SCH (21:41)
[2019-10-15] MEDS: OMEPRAZOLE 20 MG CAPSULE.DR PO SCH (05:42)
[2019-10-15] MEDS: LEVOTHYROXINE 50 MCG TABLET PO SCH (05:42)
[2019-10-15] MEDS: INSULIN LISPRO 100 UNITS/ML, PEN SQ-INSULIN SCH ×4 (07:00→20:49)
[2019-10-15 07:31] VITALS: BP 128/65
[2019-10-15] MEDS: FUROSEMIDE 40 MG TABLET PO SCH (08:48)
[2019-10-15] MEDS: ASPIRIN 81 MG TABLET EC PO SCH (08:48)
[2019-10-15] MEDS: DILTIAZEM 240 MG CAP.ER.24H PO SCH (08:48)
[2019-10-15] MEDS: FOLIC ACID 1 MG TABLET PO SCH (08:48)
[2019-10-15] MEDS: GUAIFENESIN ER 600 MG TABLET PO SCH ×2 (08:48→20:23)
[2019-10-15] MEDS: ALBUTEROL/IPRATROPIUM 2.5MG/0.5MG, 3 ML NPPB SCH ×2 (09:00→20:20)
[2019-10-15] MEDS: BUDESONIDE 0.5 MG/2 ML INHA INH SCH ×2 (09:00→20:20)
[2019-10-15] MEDS: POTASSIUM CHLORIDE 10 MEQ TABLET.ER PO SCH (09:02)
[2019-10-15] MEDS: SERTRALINE 50MG TABLET PO SCH (09:21)
[2019-10-15] MEDS: IRBESARTAN 150 MG TABLET PO SCH (09:21)
[2019-10-15] MEDS: INSULIN GLARGINE 100 UNITS/ML, PEN SQ-INSULIN SCH ×2 (09:22→20:48)
[2019-10-15 19:15] VITALS: BP 147/71
[2019-10-15] MEDS: ATORVASTATIN 10 MG TABLET PO SCH (20:23)
[2019-10-16] MEDS: OMEPRAZOLE 20 MG CAPSULE.DR PO SCH (06:00)
[2019-10-16 06:11] VITALS: BP 129/73
[2019-10-16] MEDS: LEVOTHYROXINE 50 MCG TABLET PO SCH (06:19)
[2019-10-16] MEDS: INSULIN LISPRO 100 UNITS/ML, PEN SQ-INSULIN SCH ×4 (07:54→20:14)
[2019-10-16] MEDS: POTASSIUM CHLORIDE 10 MEQ TABLET.ER PO SCH (08:05)
[2019-10-16] MEDS: SERTRALINE 50MG TABLET PO SCH (08:05)
[2019-10-16] MEDS: FUROSEMIDE 40 MG TABLET PO SCH (08:06)
[2019-10-16] MEDS: ASPIRIN 81 MG TABLET EC PO SCH (08:06)
[2019-10-16] MEDS: FOLIC ACID 1 MG TABLET PO SCH (08:06)
[2019-10-16] MEDS: DILTIAZEM 240 MG CAP.ER.24H PO SCH (08:07)
[2019-10-16] MEDS: GUAIFENESIN ER 600 MG TABLET PO SCH ×2 (08:14→20:12)
[2019-10-16] MEDS: INSULIN GLARGINE 100 UNITS/ML, PEN SQ-INSULIN SCH ×2 (08:26→20:15)
[2019-10-16] MEDS: BUDESONIDE 0.5 MG/2 ML INHA INH SCH ×2 (09:00→19:40)
[2019-10-16] MEDS: ALBUTEROL/IPRATROPIUM 2.5MG/0.5MG, 3 ML NPPB SCH ×2 (09:00→19:40)
[2019-10-16] MEDS: IRBESARTAN 150 MG TABLET PO SCH (12:38)
[2019-10-16 20:10] VITALS: BP 144/66
[2019-10-16] MEDS: ATORVASTATIN 10 MG TABLET PO SCH (20:12)
[2019-10-17] MEDS: LEVOTHYROXINE 50 MCG TABLET PO SCH (06:16)
[2019-10-17] MEDS: OMEPRAZOLE 20 MG CAPSULE.DR PO SCH (06:16)
[2019-10-17] MEDS: INSULIN LISPRO 100 UNITS/ML, PEN SQ-INSULIN SCH ×4 (07:00→20:45)
[2019-10-17 07:37] VITALS: BP 134/73
[2019-10-17] MEDS: GUAIFENESIN ER 600 MG TABLET PO SCH ×2 (08:17→20:02)
[2019-10-17] MEDS: SERTRALINE 50MG TABLET PO SCH (08:17)
[2019-10-17] MEDS: POTASSIUM CHLORIDE 10 MEQ TABLET.ER PO SCH (08:17)
[2019-10-17] MEDS: DILTIAZEM 240 MG CAP.ER.24H PO SCH (08:18)
[2019-10-17] MEDS: FUROSEMIDE 40 MG TABLET PO SCH (08:18)
[2019-10-17] MEDS: IRBESARTAN 150 MG TABLET PO SCH (08:18)
[2019-10-17] MEDS: FOLIC ACID 1 MG TABLET PO SCH (08:18)
[2019-10-17] MEDS: ASPIRIN 81 MG TABLET EC PO SCH (08:19)
[2019-10-17] MEDS: INSULIN GLARGINE 100 UNITS/ML, PEN SQ-INSULIN SCH ×2 (08:22→20:44)
[2019-10-17] MEDS: ALBUTEROL/IPRATROPIUM 2.5MG/0.5MG, 3 ML NPPB SCH ×2 (10:00→19:45)
[2019-10-17] MEDS: BUDESONIDE 0.5 MG/2 ML INHA INH SCH ×2 (10:00→19:45)
[2019-10-17 19:47] VITALS: BP 127/65
[2019-10-17] MEDS: ATORVASTATIN 10 MG TABLET PO SCH (20:02)
[2019-10-18] MEDS: OMEPRAZOLE 20 MG CAPSULE.DR PO SCH (06:04)
[2019-10-18] MEDS: LEVOTHYROXINE 50 MCG TABLET PO SCH (06:04)
[2019-10-18] MEDS: INSULIN LISPRO 100 UNITS/ML, PEN SQ-INSULIN SCH ×4 (07:00→21:50)
[2019-10-18 07:27] VITALS: BP 133/69
[2019-10-18] MEDS: ASPIRIN 81 MG TABLET EC PO SCH (08:22)
[2019-10-18] MEDS: IRBESARTAN 150 MG TABLET PO SCH (08:22)
[2019-10-18] MEDS: GUAIFENESIN ER 600 MG TABLET PO SCH ×2 (08:22→21:01)
[2019-10-18] MEDS: FOLIC ACID 1 MG TABLET PO SCH (08:22)
[2019-10-18] MEDS: SERTRALINE 50MG TABLET PO SCH (08:22)
[2019-10-18] MEDS: POTASSIUM CHLORIDE 10 MEQ TABLET.ER PO SCH (08:23)
[2019-10-18] MEDS: FUROSEMIDE 40 MG TABLET PO SCH (08:23)
[2019-10-18] MEDS: DILTIAZEM 240 MG CAP.ER.24H PO SCH (08:24)
[2019-10-18] MEDS: BUDESONIDE 0.5 MG/2 ML INHA INH SCH ×2 (08:44→19:40)
[2019-10-18] MEDS: ALBUTEROL/IPRATROPIUM 2.5MG/0.5MG, 3 ML NPPB SCH ×3 (08:45→19:40)
[2019-10-18] MEDS: INSULIN GLARGINE 100 UNITS/ML, PEN SQ-INSULIN SCH ×2 (09:08→21:50)
[2019-10-18 19:17] VITALS: BP 119/71
[2019-10-18] MEDS: ATORVASTATIN 10 MG TABLET PO SCH (21:01)
[2019-10-19] MEDS: LEVOTHYROXINE 50 MCG TABLET PO SCH (06:13)
[2019-10-19] MEDS: OMEPRAZOLE 20 MG CAPSULE.DR PO SCH (06:13)
[2019-10-19 07:00] VITALS: BP 132/60
[2019-10-19] MEDS: INSULIN LISPRO 100 UNITS/ML, PEN SQ-INSULIN SCH ×4 (07:00→21:58)
[2019-10-19] MEDS: ALBUTEROL/IPRATROPIUM 2.5MG/0.5MG, 3 ML NPPB SCH ×4 (09:00→20:00)
[2019-10-19] MEDS: FOLIC ACID 1 MG TABLET PO SCH (09:00)
[2019-10-19] MEDS: BUDESONIDE 0.5 MG/2 ML INHA INH SCH ×4 (09:00→20:00)
[2019-10-19] MEDS: INSULIN GLARGINE 100 UNITS/ML, PEN SQ-INSULIN SCH ×2 (09:19→21:57)
[2019-10-19] MEDS: POTASSIUM CHLORIDE 10 MEQ TABLET.ER PO SCH (09:31)
[2019-10-19] MEDS: ASPIRIN 81 MG TABLET EC PO SCH (09:32)
[2019-10-19] MEDS: DILTIAZEM 240 MG CAP.ER.24H PO SCH (09:32)
[2019-10-19] MEDS: SERTRALINE 50MG TABLET PO SCH (09:33)
[2019-10-19] MEDS: FUROSEMIDE 40 MG TABLET PO SCH (09:33)
[2019-10-19] MEDS: GUAIFENESIN ER 600 MG TABLET PO SCH ×2 (09:33→21:04)
[2019-10-19] MEDS: IRBESARTAN 150 MG TABLET PO SCH (09:34)
[2019-10-19 19:22] VITALS: BP 126/66
[2019-10-19] MEDS: ATORVASTATIN 10 MG TABLET PO SCH (21:04)
[2019-10-19] MEDS ORDERED: INSULIN LISPRO 100 UNIT/ML, 3ML VIAL SQ-INSULIN ONE (22:00)
[2019-10-20] MEDS: OMEPRAZOLE 20 MG CAPSULE.DR PO SCH (05:56)
[2019-10-20] MEDS: LEVOTHYROXINE 50 MCG TABLET PO SCH (05:56)
[2019-10-20 07:00] VITALS: BP 132/63
[2019-10-20] MEDS: INSULIN LISPRO 100 UNITS/ML, PEN SQ-INSULIN SCH ×4 (07:00→21:00)
[2019-10-20] MEDS: IRBESARTAN 150 MG TABLET PO SCH (08:36)
[2019-10-20] MEDS: DILTIAZEM 240 MG CAP.ER.24H PO SCH (08:37)
[2019-10-20] MEDS: GUAIFENESIN ER 600 MG TABLET PO SCH ×2 (08:37→20:14)
[2019-10-20] MEDS: SERTRALINE 50MG TABLET PO SCH (08:37)
[2019-10-20] MEDS: FUROSEMIDE 40 MG TABLET PO SCH (08:37)
[2019-10-20] MEDS: FOLIC ACID 1 MG TABLET PO SCH (08:37)
[2019-10-20] MEDS: ASPIRIN 81 MG TABLET EC PO SCH (08:37)
[2019-10-20] MEDS: POTASSIUM CHLORIDE 10 MEQ TABLET.ER PO SCH (08:37)
[2019-10-20] MEDS: BUDESONIDE 0.5 MG/2 ML INHA INH SCH ×2 (08:50→19:35)
[2019-10-20] MEDS: ALBUTEROL/IPRATROPIUM 2.5MG/0.5MG, 3 ML NPPB SCH ×2 (08:50→19:35)
[2019-10-20] MEDS: INSULIN GLARGINE 100 UNITS/ML, PEN SQ-INSULIN SCH ×2 (10:15→20:15)
[2019-10-20 19:18] VITALS: BP 126/65
[2019-10-20] MEDS: ATORVASTATIN 10 MG TABLET PO SCH (20:14)
[2019-10-21] MEDS: OMEPRAZOLE 20 MG CAPSULE.DR PO SCH (05:57)
[2019-10-21] MEDS: LEVOTHYROXINE 50 MCG TABLET PO SCH (05:57)
[2019-10-21 07:00] VITALS: BP 111/63
[2019-10-21] MEDS: INSULIN LISPRO 100 UNITS/ML, PEN SQ-INSULIN SCH ×4 (07:24→19:54)
[2019-10-21] MEDS: ASPIRIN 81 MG TABLET EC PO SCH (08:23)
[2019-10-21] MEDS: SERTRALINE 50MG TABLET PO SCH (08:23)
[2019-10-21] MEDS: POTASSIUM CHLORIDE 10 MEQ TABLET.ER PO SCH (08:23)
[2019-10-21] MEDS: IRBESARTAN 150 MG TABLET PO SCH (08:24)
[2019-10-21] MEDS: GUAIFENESIN ER 600 MG TABLET PO SCH ×2 (08:24→20:03)
[2019-10-21] MEDS: FOLIC ACID 1 MG TABLET PO SCH (08:24)
[2019-10-21] MEDS: DILTIAZEM 240 MG CAP.ER.24H PO SCH (08:24)
[2019-10-21] MEDS: FUROSEMIDE 40 MG TABLET PO SCH (08:24)
[2019-10-21] MEDS: INSULIN GLARGINE 100 UNITS/ML, PEN SQ-INSULIN SCH ×2 (09:06→19:54)
[2019-10-21] MEDS: ALBUTEROL/IPRATROPIUM 2.5MG/0.5MG, 3 ML NPPB SCH ×2 (09:10→21:00)
[2019-10-21] MEDS: BUDESONIDE 0.5 MG/2 ML INHA INH SCH ×2 (09:10→21:00)
[2019-10-21 19:00] VITALS: BP 120/48
[2019-10-21] MEDS: ATORVASTATIN 10 MG TABLET PO SCH (20:02)
[2019-10-22] MEDS: OMEPRAZOLE 20 MG CAPSULE.DR PO SCH (06:19)
[2019-10-22] MEDS: LEVOTHYROXINE 50 MCG TABLET PO SCH (06:19)
[2019-10-22 07:22] VITALS: BP 131/63
[2019-10-22] MEDS: INSULIN LISPRO 100 UNITS/ML, PEN SQ-INSULIN SCH ×2 (07:30→13:30)
[2019-10-22 08:57] LABS: BASOPHILS # (AUTO) 0.01 x10^3/uL (0-0.1); BASOPHILS % (AUTO) 0 % (0-1); EOSINOPHILS # (AUTO) 0.32 x10^3/uL (0-0.4); EOSINOPHILS % (AUTO) 3 % (1-7); LYMPHOCYTES # (AUTO) 1.15 x10^3/uL (1-3.4); LYMPHOCYTES % (AUTO) 9 % (22-44); MD NO; MEAN CORPUSCULAR HEMOGLOBIN 30.8 pg (27.0-34.8); MEAN CORPUSCULAR HGB CONC 32.2 g/dL (32.4-35.8); MEAN CORPUSCULAR VOLUME 95.7 fL (80-100); MEAN PLATELET VOLUME 8.7 fL (7.4-10.4); MONOCYTES # (AUTO) 1.18 x10^3/uL (0.2-0.8); MONOCYTES % (AUTO) 10 % (2-9); NEUTROPHILS # (AUTO) 9.55 x10^3/uL (1.8-6.8); NEUTROPHILS % (AUTO) 78 % (42-75); PLATELET COUNT 295 x10^3/uL (130-400); RED BLOOD COUNT 3.81 x10^6/uL (3.82-5.3); RED CELL DISTRIBUTION WIDTH 12.9 % (9.6-15.2)
[2019-10-22] MEDS ORDERED: INSULIN GLARGINE 100 UNITS/ML, PEN SQ-INSULIN SCH ×2 (09:00)
[2019-10-22] MEDS ORDERED: ONDANSETRON ODT 4 MG PO PRN (09:00)
[2019-10-22 09:09] LABS: ALANINE AMINOTRANSFERASE 24 U/L (12-78); ALBUMIN 2.6 g/dL (3.4-5.0); ANION GAP 6 mmol/L (5-15); CHLORIDE 106 mmol/L (98-107); CREATININE 0.96 mg/dL (0.55-1.02)
[2019-10-22 09:12] LABS: ALKALINE PHOSPHATASE 73 U/L (45-117); BILIRUBIN,TOTAL 0.3 mg/dL (0.2-1.0); TOTAL PROTEIN 6.1 g/dL (6.4-8.2)
[2019-10-22] MEDS ORDERED: OMNIPAQUE 350 MG/ML, 100ML BOTTLE ONE (11:54)
[2019-10-22] MEDS ORDERED: AZITHROMYCIN 500 MG in SODIUM CHLORIDE 0.9% 250 ML IV SCH (13:00)
[2019-10-22] MEDS ORDERED: CEFUROXIME 1.5 GM in SODIUM CHLORIDE 0.9% 50 ML IV SCH (13:00)
[2019-10-22] MEDS ORDERED: MEROPENEM 1 GM in SODIUM CHLORIDE 0.9% 100 ML IV SCH (13:00)
[2019-10-22] MEDS: POTASSIUM CHLORIDE 10 MEQ TABLET.ER PO SCH (13:24)
[2019-10-22] MEDS: SERTRALINE 50MG TABLET PO SCH (13:24)
[2019-10-22] MEDS: GUAIFENESIN ER 600 MG TABLET PO SCH (13:25)
[2019-10-22] MEDS: ASPIRIN 81 MG TABLET EC PO SCH (13:25)
[2019-10-22] MEDS: FOLIC ACID 1 MG TABLET PO SCH (13:26)
[2019-10-22] MEDS: DILTIAZEM 240 MG CAP.ER.24H PO SCH (13:32)
[2019-10-22] MEDS: IRBESARTAN 150 MG TABLET PO SCH (13:42)
== END 2019-10-22 13:55 | DRG 885 ==
LOC: 3E 15:58 → UNDOADMIN 15:58 → 2N 17:34 → UNDOADMIN 10-18 21:50
PROVIDERS: ADMIT Psychiatry & Neurology Psychosomatic Medicine; ATTEND Psychiatry & Neurology Psychosomatic Medicine
DX: F33.2 Major depressive disorder, recurrent severe without psychotic features (principal); I50.32 Chronic diastolic (congestive) heart failure; J96.11 Chronic respiratory failure with hypoxia; J44.9 Chronic obstructive pulmonary disease, unspecified; E11.65 Type 2 diabetes mellitus with hyperglycemia; I11.0 Hypertensive heart disease with heart failure; E78.5 Hyperlipidemia, unspecified; K21.9 Gastro-esophageal reflux disease without esophagitis; E03.9 Hypothyroidism, unspecified; K52.9 Noninfective gastroenteritis and colitis, unspecified; Z20.828 Contact with and (suspected) exposure to other viral communicable diseases; Z79.4 Long term (current) use of insulin; Z79.51 Long term (current) use of inhaled steroids; Z79.82 Long term (current) use of aspirin; Z79.899 Other long term (current) drug therapy; Z88.0 Allergy status to penicillin; Z83.3 Family history of diabetes mellitus
CPT/HCPCS: 36415; 71045; 74018; 74177; 80048; 80053; 80061; 80307; 81001; 82607; 82947; 82962; 83036; 83690; 84439; 84443; 85025; 87086; 94640; 99285; J7613; J7626; Q0162; Q9967; 92523-GN; J1815; J7040